=== PATIENT | female | born 1960 | race Caucasian/White ===

== ENCOUNTER 2023-08-21 08:50 | Outpatient (OUT) | payer MEDICARE, BC, SELFPAY ==
--- NOTE | 2023-08-21 09:03 | XR_ITS ---
The [address] [address] Patient Name: SANFORD BRIGHT MRN: [id number] date: 1960 Sex: F Assigned Patient Location: [facility] Current Patient Location: [facility] Accession/Order Number: [id number] Exam Date: 08/21/2023 08:57 Report Date: 08/21/2023 09:16 At the request of: YAZ CADENA Procedure: XR knee LT 4V EXAM: XR knee LT 4V HISTORY: Left Knee Pain COMPARISON: There is no appropriate prior study for comparison. The alignment is anatomical. There is no acute fracture or dislocation. Moderate degenerative changes in the medial compartment and mild in the lateral compartment and left femoral patellar joint are noted. No significant soft tissue abnormality is noted. XR/XR knee LT 4V IMPRESSION: No acute finding. 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 Electronically authenticated by: DAVION VILLAGRAN Date: 08/21/2023 09:16
== END 2023-08-21 08:51 | disposition home or self-care (01) ==
LOC: RAD 08:50
PROVIDERS: PCP Family Medicine; Visit Provider Nurse Practitioner
DX: M25.562 Pain in left knee (principal)
CPT/HCPCS: 73564

== ENCOUNTER 2024-03-09 09:58 | Outpatient (OUT) | payer MEDICARE, BC, SELFPAY ==
--- NOTE | 2024-03-09 10:04 | CT_ITS ---
[address] [address] Patient Name: SANFORD BRIGHT MRN: [id number] date: 1960 Sex: F Assigned Patient Location: CT Current Patient Location: Accession/Order Number: [id number] Exam Date: 03/09/2024 10:10 Report Date: 03/10/2024 06:36 At the request of: MAYTE CAAL Procedure: CT lung screening low-dose EXAMINATION: CT lung screening low-dose HISTORY: nicotine dependence F17.200 COMPARISON: No relevant comparison available. TECHNIQUE: Axial, Coronal, and Sagittal images were created without the administration of IV contrast material. Dose reduction techniques were achieved by using automated exposure control and/or adjustment of mA and/or kV according to patient size and/or use of iterative reconstruction technique. FINDINGS: LUNGS: No visible pulmonary disease. PLEURA: No mass, effusion, or pneumothorax. VASCULATURE: No abnormality. ZOHRA: No mass or pathologic adenopathy. MEDIASTINUM: No mass or pathologic adenopathy. CARDIAC: No enlargement, pericardial thickening, or pericardial effusion. AORTA: No aneurysm or dissection. CHEST WALL: No mass or axillary adenopathy BONES: No bone lesion or fracture. LIMITED ABDOMEN: No suspicious findings. Limited images of the upper abdomen. OTHER: Negative. CT/CT lung screening low-dose IMPRESSION: 1. Lung-RADS Category 1 Negative. No nodules and definitely benign nodules. Continue annual screening with LDCT in 12 months. Electronically authenticated by: GABI CHOW Date: 03/10/2024 06:36
--- NOTE | 2024-03-09 10:06 | MM_ITS ---
Patient Name: SANFORD BRIGHT MR#: [id number] : 1960 Exam Date: 03/09/2024 Ordering Doctor: DR. MAYTE CAAL . RADIOLOGY REPORT PROCEDURE: MM TOMOSYNTHESIS SCREENING BI COMPARISON: MM SCREENING MAMMO BI, 07/08/2017. INDICATIONS: screening Calculator Name NCI Breast Cancer Risk Assessment Tool 5 Year Breast Cancer Risk 1.20% Lifetime Breast Cancer Risk 5.70% Personal Breast Cancer No Personal Ovarian Cancer No Treatments None Family Cancers Father with pancreas cancer at age 68. LOCATION: [facility] BREAST COMPOSITION: There are scattered areas of fibroglandular density. FINDINGS: DIAGNOSTIC CATEGORY 1--NEGATIVE. NO CHANGE FROM COMPARISON ASSESSMENT. Scattered benign-appearing calcifications are present. Scattered benign-appearing lymph nodes are present. RIGHT BREAST: No significant suspicious finding. LEFT BREAST: No significant suspicious finding. RECOMMENDATIONS: ROUTINE MAMMOGRAM AND CLINICAL EVALUATION IN 12 MONTHS. PLEASE NOTE: A NORMAL MAMMOGRAM DOES NOT EXCLUDE THE POSSIBILITY OF BREAST CANCER. A CLINICALLY SUSPICIOUS PALPABLE LUMP SHOULD BE BIOPSIED. Dictated by: Brandon Newsome MD on 03/10/2024 at 13:36 Approved by: Brandon Newsome MD on 03/10/2024 at 13:37
== END 2024-03-09 09:59 | disposition home or self-care (01) ==
LOC: CT 09:58
PROVIDERS: PCP Family Medicine; Visit Provider Family Medicine
DX: Z12.31 Encounter for screening mammogram for malignant neoplasm of breast (principal); Z80.8 Family history of malignant neoplasm of other organs or systems; F17.210 Nicotine dependence, cigarettes, uncomplicated
CPT/HCPCS: 71271; 77063; 77067